=== PATIENT | male | born 1945 | race Caucasian/White ===

== ENCOUNTER → 2017-03-17 | Outpatient (CLI) | payer OTHER | LOC: BMCIMAGING 12:23 | PROVIDERS: ATTEND Family Medicine | DX: S82.831A Other fracture of upper and lower end of right fibula, initial encounter for closed fracture (principal) ==

== ENCOUNTER → 2017-04-13 | Outpatient (CLI) | payer OTHER | LOC: BMCIMAGING 11:50 | PROVIDERS: ATTEND Podiatrist Foot & Ankle Surgery | DX: S82.831D Other fracture of upper and lower end of right fibula, subsequent encounter for closed fracture with routine healing (principal) ==

== ENCOUNTER → 2017-05-06 | Outpatient (CLI) | payer OTHER ==
[~2017-05-06] MED LIST: IOPAMIDOL (ISOVUE-300) 100 ML BTL ONE
== END ==
LOC: FIMAGING 13:22
PROVIDERS: ATTEND Internal Medicine Gastroenterology
DX: K22.8 Other specified diseases of esophagus (principal); R14.0 Abdominal distension (gaseous); K22.11 Ulcer of esophagus with bleeding
CPT/HCPCS: 71260; 74177; Q9967

== ENCOUNTER → 2017-06-07 | Outpatient (CLI) | payer OTHER ==
[~2017-06-07] MED LIST changes: +GADOBUTROL 10 ML VIAL IVP ONE; -IOPAMIDOL (ISOVUE-300) 100 ML BTL ONE
== END ==
LOC: FIMAGING 19:45
PROVIDERS: ATTEND Internal Medicine Hematology & Oncology
DX: Z03.89 Encounter for observation for other suspected diseases and conditions ruled out (principal); C15.9 Malignant neoplasm of esophagus, unspecified
CPT/HCPCS: 70553; A9585

== ENCOUNTER 2017-06-15 07:54 | Day surgery (SDC) | payer OTHER ==
[2017-06-15] MEDS ORDERED: MIDAZOLAM 2 MG/2 ML VIAL IVP PRN (08:28)
[2017-06-15] MEDS ORDERED: MEPERIDINE 25 MG/ML SYR IVP PRN (08:28)
[2017-06-15] MEDS ORDERED: NALOXONE HCL 0.4 MG/ML INJ IVP PRN (08:28)
[2017-06-15] MEDS ORDERED: FLUMAZENIL 0.5 MG/5 ML MDV IVP PRN (08:28)
[2017-06-15] MEDS ORDERED: fentaNYL 100 MCG/2 ML INJ IVP PRN (08:28)
[2017-06-15] MEDS ORDERED: NS 1,000 ML IV SCH (08:30)
[2017-06-15 08:48] VITALS: TEMP 98.5
--- NOTE | 2017-06-15 08:55 | PDPROPOC ---
Sedation Plan of Care Sedation Plan of Care: vital signs stable, mental status noted, patient educated of risks, benefits, alternatives, patient can tolerate sedation ASA Classification: ASA 2 Planned drugs: fentanyl, midazolam Mallampati Score: Class 1 Mallampati Reference Image: Patient passed 3-3-2 rule?: Yes
--- NOTE | 2017-06-15 08:58 | PDGENHP ---
History & Physical Chief Complaint: NEEDS CENTRAL NUTRITION History of Present Illness: DISTAL GE JUNCTION CA. Pertinent Past, Social, Family History: NO BLEEDING DISORDERS; NO OTHER SURGERIES. HOME HEALTH CARE TO ATTEND TO FEEDS Relevant Physical Exam: IN NO DISTRESS Cardiorespiratory Assessment: RRR, CTA
[2017-06-15] MEDS ORDERED: LIDOCAINE 2% JELLY 20 ML (UROJECT) ONE (09:07)
[2017-06-15] MEDS ORDERED: LIDOCAINE 1% 300 MG/30 ML SDV ONE ×2 (09:07→09:54)
[2017-06-15] MEDS ORDERED: IOPAMIDOL (ISOVUE-300) 100 ML BTL ONE (09:07)
[2017-06-15] MEDS ORDERED: ONDANSETRON 4 MG/2 ML VIAL IVP PRN (10:08)
[2017-06-15] MEDS ORDERED: ACETAMINOPHEN 325 MG TAB PO PRN (10:08)
[2017-06-15 10:12] VITALS: PULSE 59
--- NOTE | 2017-06-15 10:13 | PDRADPN ---
Radiology Procedure Note Date of Procedure: 06/15/17 Radiologist: Mariaelena Kelly Anesthesia: IV Sedation (fentanyl and versed) Pre-op Diagnosis: GE junction CA Post-op Diagnosis: same Indication: needs enteral nutrition once chemo starts Procedure: G-tube placement Finding(s): Normal gastric anatomy. Inf/Abcess present in the surg proc area at time of surgery?: No Complications: None
[2017-06-15 11:52] VITALS: BP 107/67; RESP 12; O2SAT 94
== END 2017-06-15 12:00 | disposition home or self-care (01) ==
LOC: FIMAGING 07:54
PROVIDERS: ATTEND Internal Medicine Hematology & Oncology
DX: C15.9 Malignant neoplasm of esophagus, unspecified (principal)
CPT/HCPCS: 36569; 49440; 77001; C1751; C1769; J1644; J2250; J3010; Q9967

== ENCOUNTER → 2017-08-16 | Day surgery (SDC) | payer OTHER ==
[~2017-08-16] MED LIST changes: -GADOBUTROL 10 ML VIAL IVP ONE; +IOPAMIDOL (ISOVUE 370) 100 ML BTL IV ONE
== END | disposition home or self-care (01) ==
LOC: FIMAGING 14:15
PROVIDERS: ATTEND Radiology Diagnostic Radiology
PROC: BW11YZZ Fluoroscopy of Abdomen and Pelvis using Other Contrast (ICD-10-PCS; principal; 2017-08-16)
DX: Z43.1 Encounter for attention to gastrostomy (principal)
CPT/HCPCS: Q9967

== ENCOUNTER 2017-09-16 14:13 | Day surgery (SDC) | payer OTHER ==
[2017-09-16] MEDS ORDERED: LR 1,000 ML IV ONE (14:30)
[2017-09-16] MEDS ORDERED: INDOMETHACIN 50 MG SUPP PR PRN (15:34)
--- NOTE | 2017-09-16 15:34 | PDGENHP ---
History & Physical Chief Complaint: staging esophageal cancer History of Present Illness: 72 year old male presents for staging after neoadjuvant therapy for esophageal cancer. Pertinent Past, Social, Family History: SoHx: Former smoker. PMHx: Gout, HTN, High cholesterol Relevant Physical Exam: HEENT: anicteric sclera. CV: RRR+s1s2. lungs: CTAB No w/r/r. Abd: soft, nt, + BS Cardiorespiratory Assessment: ASA 3
--- NOTE | 2017-09-16 15:34 | PDANEPAE ---
ANE History of Present Illness here for EUS EGD ANE Past Medical History - Cardiovascular History Hx Hypertension: Yes Hx Arrhythmias: No Hx Chest Pain: No Hx Coronary Artery / Peripheral Vascular Disease: Yes Hx CHF / Valvular Disease: No Hx Palpitations: No Cardiovascular History Comment: Heart Attack 12 years, 2 stents - Pulmonary History Hx COPD: No Hx Asthma/Reactive Airway Disease: No Hx Recent Upper Respiratory Infection: No Hx Oxygen in Use at Home: No Hx Sleep Apnea: No Sleep Apnea Screening Result - Last Documented: Positive - Neurologic History Hx Cerebrovascular Accident: No Hx Seizures: No Hx Dementia: No - Endocrine History Hx Diabetes: No - Renal History Hx Renal Disorders: No - Liver History Hx Hepatic Disorders: No - Neurological & Psychiatric Hx Hx Neurological and Psychiatric Disorders: No - Cancer History Hx Cancer: Yes Cancer History Comment: Lower esophgus - Congenital Disorder History Hx Congenital Disorders: No - GI History Hx Gastrointestinal Disorders: No Gastrointestinal History Comment: esophageal cancer, acid reflux. - Other Health History Other Health History: cataract - Chronic Pain History Chronic Pain: No - Surgical History Prior Surgeries: Vasectomy ANE Review of Systems Review of Systems: - Exercise capacity Exercise capacity: >=4 METS METS (RN): 4 METS ANE Patient History - Allergies Allergies/Adverse Reactions: No Known Allergies Allergy (Verified 09/01/17 14:31) - Home Medications Home Medications: Acetamn/Diphenhydramine 500/25 [Tylenol PM (*)] 09/03/12 [Last Taken 09/01/12] Levothyroxine [Synthroid 112 mcg (*)] 09/03/12 [Last Taken 09/16/17] Metoprolol Tartrate [Lopressor 50 mg (*)] 09/03/12 [Last Taken 09/16/17] Ramipril [Altace 5mg (*)] 09/03/12 [Last Taken 09/02/12] Atorvastatin Calcium 06/14/17 [Last Taken 09/09/17] Indomethacin 06/14/17 [Last Taken 09/09/17] Allopurinol 09/01/17 [Last Taken 09/16/17] Carafate 1gm/10ml Oral Liquid (*) 09/01/17 [Last Taken Unknown] - NPO status NPO Status: no food or drink >8 hours NPO Since - Liquids (Date): 09/16/17 NPO Since - Liquids (Time): 14:46 NPO Since - Solids (Date): 09/15/17 NPO Since - Solids (Time): 18:00 - Anes Hx Anes Hx: no prior problems - Smoking Hx Smoking Status: Former smoker - Alcohol Use Alcohol Use: Rarely - Family Anes Hx Family Anes Hx: none Family Hx Anesthesia Complications: unknow ANE Labs/Vital Signs - Vital Signs Blood Pressure: 109/73 Heart Rate: 79 Respiratory Rate: 16 O2 Sat (%): 97 Height: 179.07 cm Weight: 76.657 kg ANE Physical Exam - Airway Neck exam: FROM Mallampati Score: Class 2 Mouth exam: normal dental/mouth exam - Pulmonary Pulmonary: no respiratory distress, clear to auscultation - Cardiovascular Cardiovascular: regular rate and rhythym, no murmur, rub, or gallop - ASA Status ASA Status: III ANE Anesthesia Plan Anesthesia Plan: GA with mask
[2017-09-16] MEDS ORDERED: PROPOFOL/EMULSION 500 MG/50 ML BOTTLE IV ONE ×2 (15:37→16:20)
[2017-09-16] MEDS ORDERED: NS 500 ML IV SCH (15:45)
[2017-09-16] MEDS ORDERED: NALOXONE HCL 0.4 MG/ML INJ IVP PRN (16:37)
[2017-09-16] MEDS ORDERED: LR 500 ML IV PRN (16:37)
--- NOTE | 2017-09-16 16:38 | POSTANESTH ---
Post Anesthetic Evaluation Cardiovascular Status: Normal, Stable, Similar to Pre-Op Cond Respiratory Status: Normal, Stable, Similar to Pre-op Cond. Level of Consciousness/Mental Status: Can Participate in Eval, Alert and Oriented Pain Control: Adequate, Prn Tx Ordered Nausea/Vomiting Control: Adequate, Prn Tx Ordered Complications Possibly Related to Anesthesia: None Noted
--- NOTE | 2017-09-16 16:41 | GIREPORT ---
[facility] Surgical Services - Endoscopy Department Patient Name: Martinez Mchugh Procedure Date: 09/16/2017 3:20 PM Patient Type: Outpatient Attending / ER Physician: Hans Crowe MD Procedure: Upper EUS Indications: Esophageal adenocarcinoma/Post-treatment Patient Profile: 72 year old male presents for restaging of an esophageal cancer. Providers: Hans Crowe MD Medicines: Monitored Anesthesia Care Complications: No immediate complications. Estimated blood loss: Minimal. Description of Procedure: After obtaining informed consent, the endoscope was passed under direct vision. Throughout the procedure, the patient's blood pressure, pulse, and oxygen saturations were monitored continuously. The Endosonoscope was introduced through the mouth, and advanced to the lower third of esopha werner. The Endosonoscope was introduced through the mouth, and advanced to the lower third of esophagus. The upper EUS was accomplished without diffic ulty. The esophagus was visualized endosonogrpahically. The patient tolerated the procedure well. The Endosonoscope was introduced through the mouth, and advanced to the lower third of esophagus. Findings: Endoscopic Finding : One severe (stenosis; an endoscope cannot pass) malignant-appearing, intrinsic stenosis was found 40 cms from the incisors. And was not rubi ersed due to the high grade malignancy. Endosonographic Finding : Wall thickening was visualized endosonographically in the gastroesophag eal junction with penetration to the adventitia consistent which may repres ent tumor vs artifact from treatment. One enlarged lymph node was visualized at 20 cms from the incisors. It measured 9 mm by 4 mm in maximal cross-sectional diameter. The node was round, hypoechoic and had well defined margins. Fine needle aspiration for cytology was performed. Color Doppler imaging was utilized prior to nee dle puncture to confirm a lack of significant vascular structures within th e needle path. Two passes were made with the 25 gauge needle using a transesophageal approach. A stylet was used. A hand shoe cutter was present a nd performed a preliminary cytologic examination. The cellularity of the specimen was adequate. Final cytology results are pending. Estimated Blood Loss: Estimated blood loss was minimal. Post Op Diagnosis: - Malignant-appearing esophageal stenosis. - Wall thickening was seen in the gastroesophageal junction. - One enlarged lymph node was visualized at 20cms. Fine needle aspirati on performed. Recommendation: - Discharge patient to home (with escort). - Await cytology results and await path results. - Follow up with oncology. - Thank you for allowing me to participate in the care of your patient. Attending Participation: I personally performed the entire procedure. aHns Crowe MD Hans Crowe MD 09/16/2017 4:41:21 PM This report has been signed electronicallyHans Crowe MD Number of Addenda: 0 Note Initiated On: 09/16/2017 3:20 PM [email or web address]
[2017-09-16 18:04] VITALS: BP 111/66
== END 2017-09-16 18:15 | disposition home or self-care (01) ==
LOC: FSGY 14:13
PROVIDERS: ATTEND Internal Medicine Gastroenterology
PROC: 07978ZX Drainage of Thorax Lymphatic, Via Natural or Artificial Opening Endoscopic Approach, Diagnostic (ICD-10-PCS; principal; 2017-09-16 15:30)
DX: Z08 Encounter for follow-up examination after completed treatment for malignant neoplasm (principal); K22.2 Esophageal obstruction; R59.0 Localized enlarged lymph nodes; C16.0 Malignant neoplasm of cardia; R13.10 Dysphagia, unspecified; E03.9 Hypothyroidism, unspecified; I10 Essential (primary) hypertension; M10.9 Gout, unspecified; E78.5 Hyperlipidemia, unspecified; I25.2 Old myocardial infarction; I25.10 Atherosclerotic heart disease of native coronary artery without angina pectoris; Z92.3 Personal history of irradiation; Z87.891 Personal history of nicotine dependence; Z95.5 Presence of coronary angioplasty implant and graft
CPT/HCPCS: J2704

== ENCOUNTER 2017-10-11 08:20 | Inpatient (IN) | payer OTHER ==
[~2017-10-11 08:20] MED LIST changes: -IOPAMIDOL (ISOVUE 370) 100 ML BTL IV ONE; +cefOXitin SODIUM 2 GM in STERILE WATER INJ 21 ML IV ONE
[2017-10-11] MEDS ORDERED: LR 1,000 ML IV ONE (08:46)
[2017-10-11] MEDS ORDERED: BUPIVACAINE 0.5% 30 ML SDV ONE ×2 (10:15→16:51)
[2017-10-11] MEDS ORDERED: EPINEPHrine 1 MG/ML INJ ONE ×2 (10:15→16:52)
--- NOTE | 2017-10-11 10:56 | PDHPUP ---
History & Physical Update H&P update statement: This history and physical update is based on an assessment of the patient which was completed after admission or registration (within 24 hours), but prior to the surgery/procedure. H&P update: H&P reviewed & patient examined, no change in patient's condition since H&P completed
[2017-10-11] MEDS ORDERED: MIDAZOLAM 2 MG/2 ML VIAL IVP ONE (11:13)
--- NOTE | 2017-10-11 11:13 | PDANEPAE ---
ANE History of Present Illness 72 yerar old with esophogeal ca ANE Past Medical History - Cardiovascular History Hx Hypertension: Yes Hx Arrhythmias: No Hx Chest Pain: No Hx Coronary Artery / Peripheral Vascular Disease: Yes Hx CHF / Valvular Disease: No Hx Palpitations: No Cardiovascular History Comment: AR '04, 2 stents PLACED '04, STENT X1 '05 - Pulmonary History Hx COPD: No Hx Asthma/Reactive Airway Disease: No Hx Recent Upper Respiratory Infection: No Hx Oxygen in Use at Home: No Hx Sleep Apnea: No Sleep Apnea Screening Result - Last Documented: Negative Pulmonary History Comment: USES E CIG OR NICOTINE PATCH - Neurologic History Hx Cerebrovascular Accident: No Hx Seizures: No Hx Dementia: No - Endocrine History Hx Diabetes: No Endocrine History Comment: HYPOTHYROID - Renal History Hx Renal Disorders: No - Liver History Hx Hepatic Disorders: No - Neurological & Psychiatric Hx Hx Neurological and Psychiatric Disorders: No - Cancer History Hx Cancer: Yes Cancer History Comment: Lower esophgus-TX W/CHEMO AND RAD - Congenital Disorder History Hx Congenital Disorders: No - GI History Hx Gastrointestinal Disorders: No Gastrointestinal History Comment: esophageal cancer, acid reflux. G TUBE PLACEMENT - Other Health History Other Health History: cataract-EARLY SIGNS. GOUT - Chronic Pain History Chronic Pain: No - Surgical History Prior Surgeries: CORONARY STENTS-"LAD" ANE Review of Systems Review of systems is: negative Review of Systems: - Exercise capacity METS (RN): 4 METS ANE Patient History - Allergies Allergies/Adverse Reactions: No Known Allergies Allergy (Verified 09/01/17 14:31) - Home Medications Home Medications: Allopurinol [Allopurinol 100 MG (*)] 200 mg PO DAILY 10/02/17 [Last Taken ] Calcium Carbonate [Tums 500MG (*)] 500 mg PO TID PRN 10/02/17 [Last Taken ] Colchicine [Colchicine (*)] 0.6 mg PO DAILY 10/02/17 [Last Taken 10/10/17] Docusate Sodium [Colace 100 MG (*)] 100 mg PO BID PRN 10/02/17 [Last Taken Unknown] Indomethacin [Indocin 25 mg (*)] 50 mg PO TID PRN 10/02/17 [Last Taken 09/11/17] LORazepam [Ativan (*)] 0.5 - 1 mg PO HS PRN 10/02/17 [Last Taken 10/10/17] Levothyroxine Sodium 125 mcg PO DAILY 10/02/17 [Last Taken 10/10/17] Metoprolol Tartrate [Lopressor 50 mg (*)] 50 mg PO BID 10/02/17 [Last Taken ] Polyethylene Glycol 3350 [Miralax 17 gm (*)] 17 gm PO DAILY 10/02/17 [Last Taken 10/09/17] - NPO status NPO Status: no food or drink >8 hours NPO Since - Liquids (Date): 10/10/17 NPO Since - Liquids (Time): 20:00 NPO Since - Solids (Date): 10/10/17 NPO Since - Solids (Time): 18:00 - Anes Hx Anes Hx: no prior problems - Smoking Hx Smoking Status: Former smoker - Alcohol Use Alcohol Use: None - Family Anes Hx Family Hx Anesthesia Complications: unknown ANE Labs/Vital Signs - Vital Signs Blood Pressure: 107/80 Heart Rate: 74 Respiratory Rate: 16 O2 Sat (%): 97 Height: 177.8 cm Weight: 72.575 kg ANE Physical Exam - Airway Neck exam: FROM Mallampati Score: Class 1 Mouth exam: normal dental/mouth exam - Pulmonary Pulmonary: no respiratory distress - Cardiovascular Cardiovascular: regular rate and rhythym - ASA Status ASA Status: III ANE Anesthesia Plan Anesthesia Plan: general endotracheal anesthesia, epidural Lines/Monitors: arterial line Specialized Airway: double lumen tube
[2017-10-11] MEDS ORDERED: PROPOFOL 200 MG/20 ML VIAL ONE (12:06)
[2017-10-11] MEDS ORDERED: fentaNYL 250 MCG/5 ML INJ ONE ×2 (12:06→14:39)
[2017-10-11] MEDS ORDERED: DESFLURANE 240 ML BOTTLE IH ONE (12:54)
[2017-10-11] MEDS ORDERED: BUPIVACAINE 0.25% 30 ML SDV ONE (14:21)
[2017-10-11] MEDS ORDERED: ALBUMIN 5% 250 ML BOTTLE IV ONE (14:21)
[2017-10-11] MEDS ORDERED: METHYLENE BLUE 0.5% 50 MG/10 ML AMP ONE (16:21)
--- NOTE | 2017-10-11 17:34 | POSTOPPROG ---
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 Procedure: laparotomy with R thoractomy and esophagogastrectomy Findings: tumor at GE junction, no anastomotic leaks--tested at surgery Inf/Abcess present in the surg proc area at time of surgery?: No EBL: 500cc Complications: none Drains: Other (2 28 Fr chest tubes) Specimen(s): proximal stomach and distal esophagus to pathology. esophageal margin grossly clear.
[2017-10-11] MEDS ORDERED: ONDANSETRON 4 MG/2 ML VIAL IVP PRN ×3 (17:36→18:01)
[2017-10-11] MEDS ORDERED: PROMETHAZINE HCL 25 MG/ML INJ IVP PRN (17:43)
[2017-10-11] MEDS ORDERED: HYDROmorphONE/DILAUDID 2 MG/ML INJ IVP PRN (17:43)
[2017-10-11] MEDS ORDERED: NALOXONE HCL 0.4 MG/ML INJ IVP PRN ×2 (17:43→18:01)
[2017-10-11] MEDS ORDERED: fentaNYL 100 MCG/2 ML INJ IVP PRN (17:43)
[2017-10-11] MEDS ORDERED: D5W 1/2 NS W/ 20 KCl/L 1,000 ML IV SCH (17:45)
--- NOTE | 2017-10-11 17:45 | POSTANESTH ---
Post Anesthetic Evaluation Cardiovascular Status: Normal, Stable Respiratory Status: Normal, Stable Level of Consciousness/Mental Status: Can Participate in Eval Complications Possibly Related to Anesthesia: None Noted
--- NOTE | 2017-10-11 17:50 | PDMN ---
Medical Necessity Medical necessity: [facility] IP only surgery; cpt 61523 Esophagectomy, 12905 General Surgery (Laparotomy w/esophagogastrectomy & thoracotomy)
[2017-10-11] MEDS ORDERED: NARCOTIC DRIP BAG-TOTAL ALL TYPES EP PRN (18:01)
[2017-10-11] MEDS ORDERED: diphenhydrAMINE 25 MG CAP PO PRN (18:01)
[2017-10-11] MEDS: HYDROmorph 10MCG/ML&BUP 0.0625% in 100ML NS EP SCH (18:45)
[2017-10-11] MEDS: METOCLOPRAMIDE 10 MG/2 ML VIAL IVP SCH (20:33)
[2017-10-11] MEDS: METOPROLOL TARTRATE 50 MG TAB PO SCH (20:53)
[2017-10-12] MEDS: METOCLOPRAMIDE 10 MG/2 ML VIAL IVP SCH ×4 (01:02→18:27)
[2017-10-12] MEDS: HYDROmorph 10MCG/ML&BUP 0.0625% in 100ML NS EP SCH ×2 (06:32→20:04)
[2017-10-12] MEDS: LEVOTHYROXINE 125 MCG TAB PO SCH (08:19)
[2017-10-12] MEDS: ALLOPURINOL 100 MG TAB PO SCH (08:19)
[2017-10-12] MEDS: COLCHICINE 0.6 MG CAP/TAB PO SCH (08:19)
[2017-10-12] MEDS: METOPROLOL TARTRATE 50 MG TAB PO SCH ×2 (08:21→21:45)
[2017-10-12] MEDS ORDERED: NS W/ 20 KCl/L 1,000 ML IV SCH (08:30)
--- NOTE | 2017-10-12 08:31 | SOAPPROG ---
SOAP Progress Note Assessment/Plan: Assessment/Plan: 72 Y M s/p laparotomy and thoracotomy with esophagogastrectomy for esophageal CA, Gtube removal with gastrostomy repair, jejunostomy placement. POD#1. Overall doing well. Heme: Anemia. Seems stable. 2upRBCs intraop with appropriate response. Will recheck later today. GI/FEN: Ileus/GE anastomosis. Continue NPO and NG to LWS. Trickle J tube feeds started. J tube being used for PO meds. Hyperglycemia. Will change IVF from D5W1 /2NS to NS. Neuro: Pain. Epidural is working well. : Continue lynch catheter until epidural removed. ID: Ppx ceftriaxone for potential contamination. Pulm: Repeat CXR in am. Anterior chest tube that crossed over to L chest repositioned itself--may need L chest tube at some point. Wounds: Well dressed. Cards: hemodynamically stable. BP low this am (70's) but up since awake (120's) . D/c arterial line. VTE ppx to start tomorrow if H&H ok. Anesthesia aware. Pathology pending. S: not much pain. got some sleep last night. O: alert, nad ng in place, mmm chest: ctab, no air leak cor: rrr abd: soft, no BS wounds: well dressed ext: no edema 10/12/17 08:33 Objective: Vital Signs Temp Pulse Resp BP Pulse Ox 35.6 C L 88 14 100/55 L 90 L 10/11/17 19:35 10/12/17 08:00 10/12/17 08:00 10/12/17 08:00 10/12/17 08:00 Laboratory Results 10/12/17 04:20 10/12/17 04:20 10/11/17 10/12/17 10/13/17 05:59 05:59 05:59 Intake Total 5990 Output Total 5763 Balance 4192 ICD10 Worksheet Patient Problems: Problems Problem Status Onset Esophageal cancer Acute
[2017-10-12] MEDS: DC NARCS MISC SCH (08:34)
[2017-10-12] MEDS: REGARDING ANTICOAG MISC SCH (08:34)
[2017-10-12] MEDS: cefOXitin SODIUM 1 GM in STERILE WATER INJ 10.5 ML IV SCH ×3 (09:56→22:00)
--- NOTE | 2017-10-12 13:04 | SOAPPROG ---
SOAP Progress Note Assessment/Plan: Assessment: Pt doing well after surgery. Pain reasonably controlled by epidural. Plan: Will keep epidural running at current settings. Pt may receive prn narcotics for break through pain 10/12/17 13:01 Subjective: VVS, Epidural site clean, dressing intact, nontender Objective: Vital Signs Temp Pulse Resp BP Pulse Ox 35.6 C L 91 15 110/62 92 10/11/17 19:35 10/12/17 10:00 10/12/17 10:00 10/12/17 10:00 10/12/17 10:00 Laboratory Results 10/12/17 04:20 10/12/17 04:20 10/11/17 10/12/17 10/13/17 05:59 05:59 05:59 Intake Total 5990 Output Total 1798 0 Balance 4192 0 - Time Spent With Patient Time Spent With Patient: 15 minutes - Pending Discharge Pending Discharge Within 24 Hours: No Pending Discharge Within 48 Hours: No ICD10 Worksheet Patient Problems: Problems Problem Status Onset Esophageal cancer Acute
[2017-10-12] MEDS: NS 1,000 ML IV SCH (14:46)
--- NOTE | 2017-10-12 15:17 | GCON ---
[f rep st] CONSULTATION PULMONARY/CRITICAL CARE CONSULTATION DATE OF CONSULTATION: 10/12/2017 REFERRING PHYSICIAN: Prince Silva MD REASON FOR REFERRAL: Evaluation and management of anemia and hyperglycemia. HISTORY OF PRESENT ILLNESS: The patient is a 72-year-old male who recently underwent evaluation for esophageal stenosis with difficulty swallowing. He was found to have an adenocarcinoma at the [facility]. He underwent radiation and chemotherapy and then was referred to Dr. Silva to consider gastro esophagectomy. The patient was admitted electively yesterday and underwent gastroesophagectomy. He had a laparotomy and right thoracotomy. His intraoperative course was unremarkable. He now reports that he is doing fairly well, although he still has significant pain, mostly in the right chest but also in the abdom en. This is being fairly well managed with an epidural catheter. He reports that he is fairly comfo rtable as long as he is not moving too much, but does still have significant pain with movement or co ughing. He denies feeling short of breath. PAST MEDICAL HISTORY: 1. Coronary artery disease status post myocardial infarction in 2003. 2. Hypertension. 3. Hypothyroid. 4. Hypercholesterolemia. MEDICATIONS: At time of admission include allopurinol, atorvastatin, colchicine, indomethacin, levot hyroxine, Lopressor, [place], and omeprazole. ALLERGIES: None. SOCIAL HISTORY: The patient has a 25 pack-year history of smoking and continues to smoke a few cigar ettes a day. He drinks 5-7 alcoholic beverages a week. FAMILY HISTORY: Unremarkable. REVIEW OF SYSTEMS: A 10-point review of systems adds nothing to the History of Present Illness. PHYSICAL EXAMINATION: GENERAL: The patient is awake, alert, and in no acute distress. VITAL SIGNS: Blood pressure is 146/59 with a heart rate of 99. He is afebrile. Oxygen saturations are 96% on 2 L. HEENT: Normocephalic and atraumatic. No icterus. NECK: No JVD. Trachea is midline. CHEST: Some decreased breath sounds in the right base. CARDIAC: Regular rate and rhythm without murmur. AB DOMEN: Mildly distended and tender. He has a gastrostomy tube in place. Bowel sounds are hypoactiv e. EXTREMITIES: No clubbing, cyanosis, or edema. He has a left radial arterial line. LABORATORY: Chemistry group is remarkable for a glucose of 204 and a calcium of 7.7. Hemoglobin is 9.9, down from 10.3 yesterday afternoon but up from 8.4 earlier that day. A chest x-ray shows a left pleural effusion with atelectasis. The right lung is well expanded withou t pneumothorax. He has right-sided chest tubes. The images were reviewed by me. ASSESSMENT: 1. Anemia. This has been present for at least several weeks, with hemoglobins between 8.4 and 10.3 on multiple draws. He is asymptomatic and has no signs of active bleeding. 2. Hyperglycemia. The patient's blood sugar was 204 this morning. His recent blood tests have most ly been in the normal range and he has no history of diabetes. Likely, this will resolve spontaneous ly, although it is also possible he may need a change in his tube feed formula. 3. Esophageal cancer status post gastroesophagectomy. The patient is recovering as expected, with s ignificant pain that is being managed with an epidural as well as p.r.n. pain medications. 4. Left pleural effusion. This is likely related to surgery. He has right chest tubes, but not a l eft chest tube. The effusion may persist for a while until he starts to mobilize fluid postoperative ly. 5. Prophylaxis. The patient is on Lovenox for deep venous thrombosis prophylaxis. RECOMMENDATIONS: 1. Follow hemoglobin level. 2. Repeat glucose. 3. Follow up chest x-ray. I do not feel that a thoracentesis is warranted at this point, given the patient's minimal oxygen needs and lack of dyspnea. 4. Continue enoxaparin. /[id number]/MODL
--- NOTE | 2017-10-12 15:54 | ASMTCASEMG ---
Living Arrangements What is your living Answers: With Spouse arrangement? Who do you live with? Type Of Residence What kind of residence do Answers: House you live in? Discharge Plan Comments Coordination Status Comments Notes: Patient is a 72yo male who was admitted for partial gastroesophagectomy by Dr. Silva. Patient recently finished 6 weeks of radiation and chemotherapy with Dr. Michelle. No therapies ordered currently. D/C plan TBD. CM will follow. Date Signed: 10/12/2017 03:53 PM Electronically Signed By:Radha Smith LCSW
[2017-10-12] MEDS ORDERED: BIOTENE DRY MOUTH ORAL RINSE 237 ML BTL MM PRN (16:50)
[2017-10-12] MEDS ORDERED: ORAL BALANCE GEL TUBE PO PRN ×2 (18:32→19:00)
[2017-10-13] MEDS: NS 1,000 ML IV SCH (01:42)
[2017-10-13] MEDS: METOCLOPRAMIDE 10 MG/2 ML VIAL IVP SCH ×4 (01:46→18:47)
[2017-10-13] MEDS: HYDROmorphone HCL/NS 0.5 MG/ML SYR IVP PRN ×2 (01:46→15:18)
[2017-10-13] MEDS: cefOXitin SODIUM 1 GM in STERILE WATER INJ 10.5 ML IV SCH ×3 (03:13→16:20)
[2017-10-13] MEDS: HYDROmorph 10MCG/ML&BUP 0.0625% in 100ML NS EP SCH ×2 (06:00→16:03)
[2017-10-13] MEDS: COLCHICINE 0.6 MG CAP/TAB PO SCH (09:13)
[2017-10-13] MEDS: ALLOPURINOL 100 MG TAB PO SCH (09:13)
[2017-10-13] MEDS: LEVOTHYROXINE 125 MCG TAB PO SCH (09:14)
[2017-10-13] MEDS: METOPROLOL TARTRATE 50 MG TAB PO SCH ×2 (09:14→22:32)
[2017-10-13] MEDS: DC NARCS MISC SCH (10:22)
[2017-10-13] MEDS: REGARDING ANTICOAG MISC SCH (10:23)
--- NOTE | 2017-10-13 13:13 | POSTANESTH ---
Post Anesthetic Evaluation Cardiovascular Status: Normal, Stable, Similar to Pre-Op Cond Respiratory Status: Normal, Stable, Similar to Pre-op Cond. Level of Consciousness/Mental Status: Can Participate in Eval, Alert and Oriented Pain Control: Adequate, Prn Tx Ordered Nausea/Vomiting Control: Adequate, Prn Tx Ordered Complications Possibly Related to Anesthesia: None Noted Notes: Pt seen and examined, POD#2 PCEA. Back site is c/d/i, no e/e/e, 11 cm at the skin. Able to ambulate short distances with assistance. Reports pain control is very good at rest, flairs with movement R>L. No N/V/BAUMANN, does report some itchiness. Plan: :Continue PCEA gtt as ordered. :Continue to ambulate with assistance. :Will coordinate with surgical team re disposition.
--- NOTE | 2017-10-13 13:20 | SOAPPROG ---
SOAP Progress Note Assessment/Plan: Assessment: 72 Y M s/p laparotomy and thoracotomy with esophagogastrectomy for esophageal CA , Gtube removal with gastrostomy repair, jejunostomy placement. POD#2 S: Overall doing well. C/o a little more pain today. Denies passing flatus or stool yet. Tolerating tube feedings well. O: Alert Afebrile H&H stable Neuro: pain. Epidural to be removed today. Cardiac: RRR Chest: CTA bilaterally. Chest xray stable today, per Dr. Silva. Chest tube to suction. No air leak. Over 500cc out in last 24 hours. Abdomen: soft, mildly tender. Hypoactive BS. NG tube to LWS. 100cc out in last 24 hours. Dressings cdi. Plan: D/c epidural per anesthesia. Start VTE ppx. D/c lynch catheter. Downgrade to med/surg. Await return of bowel function. Plan for small bowel follow through tomorrow. 10/13/17 13:14 Objective: Vital Signs Temp Pulse Resp BP Pulse Ox 36.9 C 115 H 25 H 86/49 L 95 10/13/17 07:28 10/13/17 07:28 10/13/17 07:28 10/13/17 07:28 10/13/17 07:28 Laboratory Results 10/13/17 09:39 10/13/17 09:39 10/12/17 10/13/17 10/14/17 05:59 05:59 05:59 Intake Total 5934 2123 Output Total 1585 1985 Balance 4192 1080 ICD10 Worksheet Patient Problems: Problems Problem Status Onset Esophageal cancer Acute
[2017-10-13] MEDS: ENOXAPARIN 40 MG/0.4 ML SYR SC SCH (13:31)
[2017-10-14] MEDS: METOCLOPRAMIDE 10 MG/2 ML VIAL IVP SCH ×4 (00:16→17:15)
[2017-10-14] MEDS: HYDROmorph 10MCG/ML&BUP 0.0625% in 100ML NS EP SCH ×3 (02:02→22:18)
[2017-10-14] MEDS: NS 1,000 ML IV SCH ×2 (02:21→22:18)
[2017-10-14] MEDS: ACETAMINOPHEN 650 MG/20.3 ML UDCUP TUBE PRN (04:26)
[2017-10-14] MEDS ORDERED: ALBUMIN 5% 500 ML IV ONE (04:30)
[2017-10-14] MEDS: ALLOPURINOL 100 MG TAB PO SCH (09:35)
[2017-10-14] MEDS: COLCHICINE 0.6 MG CAP/TAB PO SCH (09:35)
[2017-10-14] MEDS: LEVOTHYROXINE 125 MCG TAB PO SCH (09:35)
[2017-10-14] MEDS: ENOXAPARIN 40 MG/0.4 ML SYR SC SCH (09:35)
[2017-10-14] MEDS: REGARDING ANTICOAG MISC SCH (10:06)
[2017-10-14] MEDS: DC NARCS MISC SCH (10:06)
[2017-10-14] MEDS: METOPROLOL TARTRATE 50 MG TAB PO SCH ×2 (10:06→20:49)
--- NOTE | 2017-10-14 15:30 | ASMTCMCOM ---
CM Note CM Note Notes: PT is recommending patient d/c home independently at this time. They note they will continue to assess. CM available for d/c planning and needs. CM will follow. Date Signed: 10/14/2017 03:30 PM Electronically Signed By:Radha Smith LCSW
[2017-10-15] MEDS: METOCLOPRAMIDE 10 MG/2 ML VIAL IVP SCH ×4 (02:51→18:15)
[2017-10-15] MEDS: NS 1,000 ML IV SCH (06:12)
[2017-10-15 06:25] LABS: PLATELET COUNT 131 10^3/uL (150-400)
[2017-10-15] MEDS: ENOXAPARIN 40 MG/0.4 ML SYR SC SCH (08:19)
[2017-10-15] MEDS: LEVOTHYROXINE 125 MCG TAB PO SCH (08:19)
[2017-10-15] MEDS: ALLOPURINOL 100 MG TAB PO SCH (08:19)
[2017-10-15] MEDS: COLCHICINE 0.6 MG CAP/TAB PO SCH (08:19)
[2017-10-15] MEDS: METOPROLOL TARTRATE 50 MG TAB PO SCH ×2 (08:22→22:08)
[2017-10-15] MEDS: REGARDING ANTICOAG MISC SCH (09:25)
[2017-10-15] MEDS: DC NARCS MISC SCH (09:25)
--- NOTE | 2017-10-15 11:30 | POSTANESTH ---
Post Anesthetic Evaluation Cardiovascular Status: Normal, Stable, Similar to Pre-Op Cond Respiratory Status: Normal, Stable, Similar to Pre-op Cond. Level of Consciousness/Mental Status: Can Participate in Eval, Alert and Oriented Pain Control: Adequate, Prn Tx Ordered Nausea/Vomiting Control: Adequate, Prn Tx Ordered Complications Possibly Related to Anesthesia: None Noted Notes: Pt seen and examined. Back site c/d/i, no e/e/e. Able to ambulate with walker. Denies n/v. Reports some itchiness. Pain control is rated as good, though it took some time to get to sleep last night. Plan: :Pt is moving towards discharge, so will transition from epidural to IV/PO meds as tolerated. :Hold epidural infusion now. :Please pull epidural catheter 12 hours after this am's Lovenox dose, document tip intact. :Thank you for this interesting consult, please call with any questions or concerns.
--- NOTE | 2017-10-15 12:00 | SOAPPROG ---
SOAP Progress Note Assessment/Plan: Assessment: AFEBRILE/VITAL SIGNS STABLE/URINE OUTPUT GOOD/500 CC CHEST TUBE OUTPUT/MINIMAL NG OUTPUT CHEST X-RAY YESTERDAY WELL EXPANDED WOUND OKAY TOLERATING TUBE FEEDS BREATH SOUNDS EQUAL/ABDOMEN SOFT NONTENDER WITH BOWEL SOUNDS HEMATOCRIT 31 Plan: HOPEFULLY START P.O. SOON 10/15/17 11:59 10/15/17 14:32 Objective: Vital Signs Temp Pulse Resp BP Pulse Ox 37 C 96 17 99/68 L 97 10/15/17 07:30 10/15/17 07:30 10/15/17 07:30 10/15/17 07:30 10/15/17 07:30 Laboratory Results 10/15/17 08:50 10/15/17 05:45 10/14/17 10/15/17 10/16/17 05:59 05:59 05:59 Intake Total 3893 4005 Output Total 2290 2305 Balance 1603 1700 ICD10 Worksheet Patient Problems: Problems Problem Status Onset Esophageal cancer Acute
[2017-10-15] MEDS ORDERED: PROTOCOL POTASSIUM 1 DOSE MISC PRN (15:33)
[2017-10-15] MEDS: HYDROmorph 10MCG/ML&BUP 0.0625% in 100ML NS EP SCH (18:19)
[2017-10-15] MEDS ORDERED: POTASSIUM CL 10 MEQ TAB PO ONE (21:29)
[2017-10-15] MEDS: POTASSIUM Cl (KCl) 50 ML IV SCH ×2 (22:27→23:26)
[2017-10-16] MEDS: METOCLOPRAMIDE 10 MG/2 ML VIAL IVP SCH ×4 (00:58→18:04)
[2017-10-16] MEDS: HYDROmorph 10MCG/ML&BUP 0.0625% in 100ML NS EP SCH ×2 (04:12→14:05)
[2017-10-16] MEDS: POTASSIUM Cl (KCl) 50 ML IV SCH ×2 (05:33→07:37)
[2017-10-16] MEDS: COLCHICINE 0.6 MG CAP/TAB PO SCH (08:31)
[2017-10-16] MEDS: LEVOTHYROXINE 125 MCG TAB PO SCH (08:31)
[2017-10-16] MEDS: ALLOPURINOL 100 MG TAB PO SCH (08:31)
[2017-10-16] MEDS: ENOXAPARIN 40 MG/0.4 ML SYR SC SCH (08:32)
[2017-10-16] MEDS: METOPROLOL TARTRATE 50 MG TAB PO SCH (08:33)
[2017-10-16] MEDS: ALLOPURINOL 100 MG TAB TUBE SCH (08:34)
[2017-10-16] MEDS: METOPROLOL TARTRATE 50 MG TAB TUBE SCH ×2 (08:35→21:43)
[2017-10-16] MEDS: LEVOTHYROXINE 125 MCG TAB TUBE SCH (08:35)
[2017-10-16] MEDS: COLCHICINE 0.6 MG CAP/TAB TUBE SCH (08:35)
[2017-10-16] MEDS: DC NARCS MISC SCH (10:30)
--- NOTE | 2017-10-16 10:53 | SOAPPROG ---
JANESSA Progress Note Assessment/Plan: Assessment: AFEBRILE/VITAL SIGNS STABLE/URINE OUTPUT GOOD/500 CC CHEST TUBE OUTPUT/MINIMAL NG OUTPUT CHEST X-RAY YESTERDAY WELL EXPANDED WOUND OKAY TOLERATING TUBE FEEDS BREATH SOUNDS EQUAL/ABDOMEN SOFT NONTENDER WITH BOWEL SOUNDS HEMATOCRIT 31 Plan: HOPEFULLY START P.O. SOON 10/15/17 11:59 10/15/17 14:32 10/16/17 10:52 ALERT/VITAL SIGNS STABLE/TOLERATING CLEARS/MINIMAL NG OUTPUT/CHEST TUBE DRAINAGE DECREASED/PATH PENDING AFEBRILE/TOLERATING NG CLAMP WOUND OKAY/ABDOMEN SOFT WITH BOWEL SOUNDS AND POSITIVE FLATUS PLAN: DC NG IS AND CONTINUE CLEAR LIQUIDS/HOPEFULLY DC CHEST TUBES IN THE A.M. Objective: Vital Signs Temp Pulse Resp BP Pulse Ox 36.8 C 93 16 100/67 99 10/16/17 07:48 10/16/17 10:00 10/16/17 10:00 10/16/17 10:00 10/16/17 10:00 Laboratory Results 10/15/17 08:50 10/16/17 04:10 10/15/17 10/16/17 10/17/17 05:59 05:59 05:59 Intake Total 4005 4034 Output Total 2305 1920 Balance 1700 2114 ICD10 Worksheet Patient Problems: Problems Problem Status Onset Esophageal cancer Acute
[2017-10-16] MEDS: REGARDING ANTICOAG MISC SCH (11:15)
[2017-10-16] MEDS: NS 1,000 ML IV SCH (11:57)
--- NOTE | 2017-10-16 13:23 | POSTANESTH ---
Post Anesthetic Evaluation Cardiovascular Status: Normal, Stable, Similar to Pre-Op Cond Respiratory Status: Normal, Stable, Similar to Pre-op Cond. Level of Consciousness/Mental Status: Can Participate in Eval, Alert and Oriented Pain Control: Adequate, Prn Tx Ordered Nausea/Vomiting Control: Adequate, Prn Tx Ordered Complications Possibly Related to Anesthesia: None Noted Notes: Pt seen and examined POD#5, PCEA in place. Pt rates pain control as good. Epidural back site is c/d/i, no e/e/e. Able to ambulate with walker. Denies n/ v/pruritis/BAUMANN. CT in place. Plan: :Plan to maintain PCEA until CT is removed, or 7 days; whichever comes first. :Hold lovenox in the am 10/17; if CT removed then will D/C epidural. :If CT maintained, redose lovenox, hold am 10/18 dose and D/C epidural at that time. :D/W surgical team.
--- NOTE | 2017-10-16 14:29 | ASMTCMCOM ---
CM Note CM Note Notes: Long conversation with patient and re: discharge planning. Patient's NG tube was clamped today, clear liquid diet was ordered, and chest tube may come out tomorrow. Patient lives in a multi-story home, and there is no bathroom on main level. has concerns about being able to care for patient, although she is home all day. They seem amenable to SNF. I provided a Senior Blue Book and some suggestions; patient's will visit facilities tomorrow. Patient is Med-Surg status. Case Management will follow. Date Signed: 10/16/2017 02:29 PM Electronically Signed By:Kiana Murillo RN
[2017-10-16] MEDS ORDERED: diphenhydrAMINE 12.5 MG/5 ML UDCUP TUBE PRN (15:41)
[2017-10-16] MEDS ORDERED: ONDANSETRON DISINTEGRATING 4 MG TAB PO PRN (15:43)
[2017-10-16] MEDS ORDERED: POTASSIUM CL 20 MEQ/15 ML UDCUP TUBE ONE (22:00)
[2017-10-16] MEDS: ACETAMINOPHEN 650 MG/20.3 ML UDCUP TUBE PRN (22:28)
[2017-10-17] MEDS: METOCLOPRAMIDE 10 MG/2 ML VIAL IVP SCH ×5 (06:25→23:29)
[2017-10-17] MEDS ORDERED: POTASSIUM CL 20 MEQ/15 ML UDCUP TUBE ONE ×2 (07:00→21:30)
[2017-10-17] MEDS: COLCHICINE 0.6 MG CAP/TAB TUBE SCH (08:01)
[2017-10-17] MEDS: ALLOPURINOL 100 MG TAB TUBE SCH (08:01)
[2017-10-17] MEDS: LEVOTHYROXINE 125 MCG TAB TUBE SCH (08:01)
[2017-10-17] MEDS: METOPROLOL TARTRATE 50 MG TAB TUBE SCH ×2 (08:07→23:53)
[2017-10-17] MEDS: REGARDING ANTICOAG MISC SCH (08:29)
[2017-10-17] MEDS: DC NARCS MISC SCH (08:29)
--- NOTE | 2017-10-17 08:40 | POSTANESTH ---
Post Anesthetic Evaluation Cardiovascular Status: Normal, Stable Respiratory Status: Normal, Stable Level of Consciousness/Mental Status: Can Participate in Eval, Alert and Oriented Pain Control: Adequate, Prn Tx Ordered Nausea/Vomiting Control: Adequate, Prn Tx Ordered Complications Possibly Related to Anesthesia: None Noted (Pt is POD #6. PCEA in place for post op pain. Site clean, dressing intact, no erythema or swelling. Pt reports good pain control without narcotics. Chest tubes in place. Will continue epidural today while CT are in place.)
--- NOTE | 2017-10-17 12:23 | ASMTCMCOM ---
CM Note CM Note Notes: Chart reviewed. Met with patient to review dc plan of care. Per patient his Rose Marie Garcia is looking at 3 facilities today and will be here at about 2:30. One referral placed in allscripts to [facility]. Will discuss preferences with his when she arrives. CM to follow. Plan: To SNF rehab. Date Signed: 10/17/2017 12:23 PM Electronically Signed By:Hilda Lees RN
--- NOTE | 2017-10-17 12:47 | SOAPPROG ---
SOED Progress Note Assessment/Plan: Assessment: 72 Y M s/p laparotomy and thoracotomy with esophagogastrectomy for esophageal CA , Gtube removal with gastrostomy repair, jejunostomy placement. POD#2 Acute blood loss anemia: resolved Pleural effusion: right sided chest tubes x2 in place S: Overall doing well. C/o a little more pain today. Denies passing flatus or stool yet. Tolerating tube feedings well. O: Alert Afebrile H&H stable Neuro: pain. Epidural helping. Cardiac: RRR Chest: CTA bilaterally. Chest xray stable today, per Dr. Silva. Chest tube to suction. No air leak. Over 500cc out in last 24 hours. Abdomen: soft, mildly tender. Hypoactive BS. NG tube to LWS. 100cc out in last 24 hours. Dressings cdi. Plan: Downgrade to med/surg. Await return of bowel function. Plan for small bowel follow through tomorrow. 10/13/17 13:14 10/17/17 12:42 Continuing to improve. Path showed small residual CA with no positive LNs. Pain well controlled. Tolerating clear liquid diet well. Passing flatus and stool. Incision cdi. J-tube intact, tolerating tube feedings. Chest tubes in place with over 300ml out in last 24 hours. Plan for d/c epidural today, as well as lynch catheter. Continue chest tubes, ok to come off suction. Advance to soft diet. LUE swelling: U/S negative for DVT. PICC in proper place. Pt denies pain. Objective: Vital Signs Temp Pulse Resp BP Pulse Ox 36.8 C 96 16 87/65 L 98 10/17/17 10:39 10/17/17 10:39 10/17/17 10:39 10/17/17 10:39 10/17/17 10:39 Laboratory Results 10/15/17 08:50 10/17/17 06:20 10/16/17 10/17/17 10/18/17 05:59 05:59 05:59 Intake Total 7731 3735 Output Total 5001 3880 Balance 2114 129 ICD10 Worksheet Patient Problems: Problems Problem Status Onset Esophageal cancer Acute
[2017-10-17] MEDS ORDERED: ENOXAPARIN 40 MG/0.4 ML SYR SC SCH ×2 (14:00→16:00)
--- NOTE | 2017-10-17 14:36 | ASMTCMCOM ---
CM Note CM Note Notes: Met with patient's regarding choices fro rehab and to discuss concerns regarding patient's overall outlook and motivation. I have left a message with our behavioral Health RN to request a consultation. I made referrals in allscripts to [facility] and [facility]. Will also call business teacher services for emotional support. CM to follow. Date Signed: 10/17/2017 02:36 PM Electronically Signed By:Hilda Lees RN
[2017-10-17] MEDS: HYDROmorph 10MCG/ML&BUP 0.0625% in 100ML NS EP SCH (15:58)
[2017-10-18] MEDS: HYDROmorph 10MCG/ML&BUP 0.0625% in 100ML NS EP SCH ×2 (02:24→12:59)
[2017-10-18] MEDS: METOCLOPRAMIDE 10 MG/2 ML VIAL IVP SCH ×3 (05:12→18:20)
[2017-10-18] MEDS ORDERED: POTASSIUM CL 20 MEQ/15 ML UDCUP PO ONE ×2 (05:58→10:00)
[2017-10-18] MEDS ORDERED: ENOXAPARIN 40 MG/0.4 ML SYR SC SCH (09:00)
[2017-10-18] MEDS: LEVOTHYROXINE 125 MCG TAB TUBE SCH (09:12)
[2017-10-18] MEDS: DC NARCS MISC SCH (09:12)
[2017-10-18] MEDS: REGARDING ANTICOAG MISC SCH (09:12)
[2017-10-18] MEDS: METOPROLOL TARTRATE 50 MG TAB TUBE SCH ×2 (09:12→22:11)
[2017-10-18] MEDS: ALLOPURINOL 100 MG TAB TUBE SCH (09:12)
[2017-10-18] MEDS: COLCHICINE 0.6 MG CAP/TAB TUBE SCH (09:13)
--- NOTE | 2017-10-18 10:16 | ASMTCMCOM ---
CM Note CM Note Notes: Spoke w/Evan at [facility]; they are able to accept pt. He is not medically ready for dc at this time. [facility] requested that if possible at dc his sleeping med be changed to Melatonin. CM will follow. Date Signed: 10/18/2017 10:15 AM Electronically Signed By:Antoinette Delarosa RN
[2017-10-18] MEDS ORDERED: ZOLPIDEM TARTRATE 5 MG TAB PO PRN (10:33)
--- NOTE | 2017-10-18 12:51 | SOAPPROG ---
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 S/P neoadjuvant chemoradiation therapy: weekly Carboplatin + Paclitaxel completed 08/01/17. Radiation therapy completed 08/05/17. Now 1 week post - op Esophagogastrectomy. Steady post op recovery noted and possible discharge 10/19/17 or when stable. Plan: 1.) Discharge when stable. 2.) I informed Dr. Neville Damon in our group that he had surgery last week. 3.) No active Tx planned for now. 4.) Pt. should see in the next 8 weeks, post op for follow up at the [facility] office. 5.) Recontact our service as needed. 10/18/17 12:46 Subjective: Feeling stronger, no respiratory sx. and now with normal bowel function on TF. Objective: VSS, afebrile as noted here. HEENT- anicteric, no thrush Neck- supple Chest- clear anteriorly CVS- RSR, no extra HS ABD- soft, NT BS+ EXT- no edema in LE, minimal LUE edema. Labs- noted here. Vital Signs Temp Pulse Resp BP Pulse Ox 36.8 C 100 18 116/83 H 92 10/18/17 12:21 10/18/17 12:21 10/18/17 12:21 10/18/17 12:21 10/18/17 12:21 Laboratory Results 10/15/17 08:50 10/18/17 05:20 10/17/17 10/18/17 10/19/17 05:59 05:59 05:59 Intake Total 1334 2070 Output Total 2820 1999 999 Balance 129 71 -1000 ICD10 Worksheet Patient Problems: Problems Problem Status Onset Esophageal cancer Acute
--- NOTE | 2017-10-18 14:47 | SOAPPROG ---
SOAP Progress Note Assessment/Plan: Assessment/Plan: 72 Y M s/p laparotomy and thoracotomy with esophagogastrectomy for esophageal CA, Gtube removal with gastrostomy repair, jejunostomy placement. POD#7. Overall doing well. Seen by Dr. Silva earlier this morning and then by myself later today. Hopefully to SNF in next few days. Will need epidural out and transition to PO pain meds PRN. May need to watch L sided pleural effusion. Heme: Stable. Did have acute blood loss anemia, 2 u pRBCs intraoperatively. On VTE ppx. GI/FEN: Ileus/GE anastomosis. Tolerating dysphagia III (soft) diet. Decrease tube feed rate to 40cc/hr. On reglan. Neuro: Pain. Epidural has worked well. Removal per anesthesia soon. : Continue lynch catheter until epidural removed. ID: Ppx ceftriaxone for potential contamination has d/c'ed. Pulm: Removed chest tubes. Some L sided pleural effusion on wet read. No obvious ptx on wet read. Await rad's input. Wounds: C/d/i. +miguel. Remove next week. Cards: hemodynamically stable. Appreciate oncology input. S: minimal pain. ate mashed potatoes. O: alert, nad ng in place, mmm chest: ctab, no air leak. removed tubes s event. cor: rrr abd: soft, no BS wounds: cdi, no erythema. ext: no edema 10/18/17 14:47 Objective: Vital Signs Temp Pulse Resp BP Pulse Ox 36.6 C 93 20 99/71 L 96 10/18/17 14:31 10/18/17 14:31 10/18/17 14:31 10/18/17 14:31 10/18/17 14:31 Laboratory Results 10/15/17 08:50 10/18/17 05:20 10/17/17 10/18/17 10/19/17 05:59 05:59 05:59 Intake Total 6977 2070 Output Total 6341999 Balance 129 71 -1000 ICD10 Worksheet Patient Problems: Problems Problem Status Onset Esophageal cancer Acute
[2017-10-19] MEDS: METOCLOPRAMIDE 10 MG/2 ML VIAL IVP SCH ×5 (00:02→23:58)
[2017-10-19] MEDS ORDERED: POTASSIUM CL 10 MEQ TAB PO ONE (07:38)
[2017-10-19] MEDS ORDERED: POTASSIUM CL 20 MEQ/15 ML UDCUP TUBE ONE (08:00)
[2017-10-19] MEDS: HYDROmorphone HCL/NS 0.5 MG/ML SYR IVP PRN (09:36)
[2017-10-19] MEDS: ALLOPURINOL 100 MG TAB TUBE SCH (09:37)
[2017-10-19] MEDS: COLCHICINE 0.6 MG CAP/TAB TUBE SCH (09:37)
[2017-10-19] MEDS: LEVOTHYROXINE 125 MCG TAB TUBE SCH (09:37)
[2017-10-19] MEDS: DC NARCS MISC SCH (09:38)
[2017-10-19] MEDS: REGARDING ANTICOAG MISC SCH (09:39)
[2017-10-19] MEDS: METOPROLOL TARTRATE 50 MG TAB TUBE SCH ×2 (09:41→20:29)
[2017-10-19] MEDS ORDERED: oxyCODONE IR 5 MG TAB PO PRN (10:35)
[2017-10-19] MEDS ORDERED: LORazepam 0.5 MG TAB TUBE PRN (10:39)
[2017-10-19] MEDS ORDERED: oxyCODONE IR 5 MG TAB TUBE PRN (11:00)
--- NOTE | 2017-10-19 11:07 | SOAPPROG ---
SOAP Progress Note Assessment/Plan: Assessment: 72 Y M s/p laparotomy and thoracotomy with esophagogastrectomy for esophageal CA , Gtube removal with gastrostomy repair, jejunostomy placement. Acute blood loss anemia: resolved S/p chest tube removal yesterday. Chest xray this am shows stable right sided pneumothorax and left sided pleural effusion S: at bedside during visit. concerned about pt's anxiety level. Pt reports that it is "just something I need to deal with". Per , he usually takes 0.5mg ativan at home for anxiety ever since originally being diagnosed with CA. Pt also c/o of mild SOB this am. Does report passing flatus and stool. Denies nausea. Tolerating a regular diet, but not much of an appetite. Only ate one small meal yesterday. O: Alert Afebrile VSS. Sating in 90s on RA Cardiac: RRR Chest: CTA bilaterally. Abdomen: soft, mildly tender to palpation. J-tube in place. Plan: Ativan prn for anxiety. Switch to oral oxycodone for pain control. D/c lynch once epidural is out. Will continue tube feeds for now until pt increases oral intake. 10/19/17 10:58 Objective: Vital Signs Temp Pulse Resp BP Pulse Ox 36.7 C 78 16 97/71 L 97 10/19/17 08:00 10/19/17 09:41 10/19/17 08:00 10/19/17 09:41 10/19/17 08:00 Microbiology 10/14/17 04:45 Blood Culture - Final Blood 10/14/17 04:45 Blood Culture - Final Blood Laboratory Results 10/15/17 08:50 10/19/17 05:00 10/18/17 10/19/17 10/20/17 05:59 05:59 05:59 Intake Total 2070 8640 Output Total 1999 0777 303 Balance 94 -535 -315 ICD10 Worksheet Patient Problems: Problems Problem Status Onset Esophageal cancer Acute
[2017-10-19] MEDS: oxyCODONE IR 5 MG TAB PO PRN (12:07)
[2017-10-19] MEDS: ENOXAPARIN 40 MG/0.4 ML SYR SC SCH (12:07)
--- NOTE | 2017-10-19 16:32 | ASMTCMCOM ---
CM Note CM Note Notes: Discussed dc plan today w/pt's , Kaycee, and she clarified that [facility] is their first choice over [facility]. Spoke w/Nenita at [facility] and they are still able to accept. Notified Evan at [facility] that pt would be using different facility. Pt's also expressed concern about pt's anxiety and depression around the cancer and surgery; she discussed this w/Jaimie Saini as well. Both Jaimie and I have put calls out to [facility]; CM will need to follow up w/her tomorrow. Also discussed these concerns with Nenita at [facility] so they are aware and she will alert their social sciences instructor. U[facility]en [facility] was here to do teach for J-tube feeding but decided it would be better to do at SNF. Current plan: dc to [facility] when med ready Date Signed: 10/19/2017 04:32 PM Electronically Signed By:Antoinette Delarosa RN
--- NOTE | 2017-10-19 18:41 | GOP ---
[f rep st] OPERATIVE REPORT DATE OF OPERATION: 10/11/2017 SURGEON: Prince Silva MD INSTRUMENT MAKER AND REPAIRER: Leeanne Gray PA-C. ANESTHESIOLOGIST: Delroy Gaffney MD PREOPERATIVE DIAGNOSIS: Gastroesophageal adenocarcinoma. POSTOPERATIVE DIAGNOSIS: Gastroesophageal adenocarcinoma. PROCEDURE PERFORMED: 1. Leonardo David esophagogastrectomy. 2. Pyloroplasty. 3. Removal of gastrostomy tube with gastric repair. 4. Mediastinal lymph node dissection. FINDINGS: Patient was found to have residual tumor at the GE junction, but no obvious metastatic disease or obvious node involvement. ESTIMATED BLOOD LOSS: Less than 600 cc. Chest tubes were secured at the skin with 2-0 silk sutures and the skin was closed with skin miguel. All wounds were infiltrated with 0.5% Marcaine. Tolerated the procedure well, taken to the recovery room in good condition. There were no complications. DESCRIPTION OF PROCEDURE: The patient was taken to the operating room where he received a satisfactory general endotracheal anesthesia by Dr. Gaffney. He was placed in the supine position, prepped and draped in the usual sterile fashion. An upper abdominal midline incision was made and carried through the linea alba. The abdomen was carefully entered. The stomach was freed up from the anterior abdominal wall. The gastrostomy tube was removed. The gastrostomy site was fully mobilized, was then debrided and closed using an inner layer of running 3-0 Vicryl suture, and an outer layer of imbricating 3-0 silk sutures. This was all done near the greater curvature of the stomach where the G-tube had been placed. That allowed better visualization into the abdomen and the abdomen was retracted with the Omni retractor. The left lateral segment of the liver was mobilized so that it could be better retracted. The esophageal hiatus was examined. It was freed up circumferentially, and the tumor appeared to be resectable. The liver was evaluated with no evidence of metastatic disease. The gastrohepatic ligament was divided with the Harmonic scalpel. The short gastrics in the gastrocolic omentum was divided with the Harmonic scalpel as well, with care to avoid injury to the gastroepiploic arteries all along the greater curvature. The Claudia maneuver was done allowing better mobility of the entire stomach and it was freed up from adhesions in the retroperitoneum to the pancreas. A portion of the posterior diaphragmatic clyde was resected along with the stomach since was somewhat adherent in that area and it could not be determined if there was tumor invasion or not. The stomach was fully mobilized and the esophagus was then mobilized, transhiatally up into the chest or as high as we could reach. A pyloroplasty was then done with a longitudinal incision over the pylorus, and then a transverse closure in 2 layers using 3-0 Vicryl for the inner layer and an outer layer of interrupted 2- 0 silk Lembert sutures. of the stomach would readily move up into the chest after the dissection was completed. The left the gastric artery was doubly ligated and divided. Multiple nodes were dissected free in the celiac area and contained with the stomach. Wound was irrigated. Hemostasis was assured. The proximal jejunum was isolated. A 14-Upper Sorbian feeding catheter was brought in through a separate stab incision. It was then inserted into the proximal small bowel via a small enterotomy in a 2-0 silk pursestring suture. Catheter appeared to flush quite well. The proximal portion of the catheter was covered with a Witzel-type closure with interrupted 3-0 silks, and it was secured up to the anterior abdominal wall near the exit site and appeared to flush quite well. The abdomen was then closed using a running #1 PDS suture for the linea alba, reinforced periodically with #1 Vicryl interrupted sutures and the skin was closed with skin miguel. The J-tube was secured to the exit site with 3-0 Prolene sutures. The wounds were dressed. The patient was then turned up in the left lateral decubitus position, and a posterolateral thoracotomy was then done using muscle sparing technique and the 5th intercostal space was entered. The mediastinum was opened and dissected free all the way up to the azygos vein. The esophagus was encircled with a [place] drain and elevated up from its bed in the mediastinum. The stomach was pulled up through the open hiatus and easily reached up into the upper reaches of the chest. Lymph node tissue in the mediastinum was dissected free, along with the esophagus, cleaning it out from one pleural surfaces to the other, all the way up to the hilum. It appeared that the stomach was viable and was reached adequately up to the level of the azygos vein. Stay sutures were placed in the esophageal wall and the proximal esophagus was divided. The stomach was further pulled up. In the CRISTA, the portion of the fundus, the GE junction and most of the lesser curvature wall of the stomach was divided with a CRISTA stapler. A specimen was removed and sent to pathology. It should be noted that the short gastrics were ligated with 2-0 silk suture ligatures. The specimen was then removed and the staple line was reinforced and imbricated with a running 3-0 Prolene suture. The remaining portion of the stomach appeared to be quite viable, and the pyloroplasty was almost at the level of the hiatus. An end-to-end anastomosis was then made to the back wall of the stomach and the esophagus, after pathology returned clear margins. A two-layer anastomosis was done with interrupted 3-0 silks for the posterior and anterior layers in the inner layers of interrupted 3-0 Vicryl mattress sutures. This created a good 2 fingerbreadth anastomosis. NG tube was passed through this anastomosis and the gastric remnant. The suture line was completed anteriorly. The remaining anterior portion of the stomach was then wrapped around the esophagus as a Pako type fundoplication with interrupted silk sutures, securing it to the pleura of the chest wall and the mediastinum. The stomach was distended with methylene blue and there was no evidence of any leakage and that was all suctioned clear. The wound was irrigated. Hemostasis was assured. Two 28-Upper Sorbian chest tubes were brought out through separate stab incisions and secured to the skin with 2-0 silk suture. The chest was then closed with #1 Vicryl pericostal sutures placed through drill bits into the lower rib. Musculature was closed with a running 0 Vicryl suture, subcu with a running 2-0 Vicryl suture and the skin with skin miguel. He tolerated the procedure well. There were no complications. FINAL PROCEDURE: 1. Leonardo David esophagogastrectomy with laparotomy and right thoracotomy. 2. Pyloroplasty. 3. Feeding jejunostomy. 4. Closure of gastrostomy wound. /[id number]/MODL MTDD
[2017-10-19] MEDS ORDERED: LORazepam 0.5 MG TAB PO PRN (20:00)
[2017-10-19] MEDS: LORazepam 0.5 MG TAB PO PRN (20:29)
[2017-10-20] MEDS ORDERED: POTASSIUM CL 20 MEQ/15 ML UDCUP TUBE ONE (02:00)
[2017-10-20] MEDS: METOCLOPRAMIDE 10 MG/2 ML VIAL IVP SCH ×3 (04:48→17:23)
[2017-10-20] MEDS: ALLOPURINOL 100 MG TAB TUBE SCH (09:50)
[2017-10-20] MEDS: LEVOTHYROXINE 125 MCG TAB TUBE SCH (09:50)
[2017-10-20] MEDS: COLCHICINE 0.6 MG CAP/TAB TUBE SCH (09:51)
[2017-10-20] MEDS: ENOXAPARIN 40 MG/0.4 ML SYR SC SCH (09:52)
[2017-10-20] MEDS: METOPROLOL TARTRATE 50 MG TAB TUBE SCH ×2 (09:52→21:55)
--- NOTE | 2017-10-20 09:53 | SOAPPROG ---
SOAP Progress Note Assessment/Plan: Assessment: 72 Y M s/p laparotomy and thoracotomy with esophagogastrectomy for esophageal CA , Gtube removal with gastrostomy repair, jejunostomy placement. Acute blood loss anemia: resolved S/p chest tube removal yesterday. Chest xray this am shows stable right sided pneumothorax and left sided pleural effusion S: at bedside during visit. concerned about pt's anxiety level. Pt reports that it is "just something I need to deal with". Per , he usually takes 0.5mg ativan at home for anxiety ever since originally being diagnosed with CA. Pt also c/o of mild SOB this am. Does report passing flatus and stool. Denies nausea. Tolerating a regular diet, but not much of an appetite. Only ate one small meal yesterday. O: Alert Afebrile VSS. Sating in 90s on RA Cardiac: RRR Chest: CTA bilaterally. Abdomen: soft, mildly tender to palpation. J-tube in place. Plan: Ativan prn for anxiety. Switch to oral oxycodone for pain control. D/c lynch once epidural is out. Will continue tube feeds for now until pt increases oral intake. 10/19/17 10:58 10/20/17 09:51 Pt seen and evaluated with Dr. Silva today. Decrease tube feeding rate to 25ml /hr. Likely d/c it tomorrow. Tolerating a regular diet and passing flatus and BMs. Pain well controlled. Breath sounds diminished at bases, otherwise clear. Repeat chest xray today to reevaluate right pneumothorax and left pleural effusion. Objective: Vital Signs Temp Pulse Resp BP Pulse Ox 36.8 C 61 16 138/82 H 94 10/20/17 07:41 10/20/17 07:41 10/20/17 07:41 10/20/17 07:41 10/20/17 07:41 Microbiology 10/14/17 04:45 Blood Culture - Final Blood 10/14/17 04:45 Blood Culture - Final Blood Laboratory Results 10/15/17 08:50 10/20/17 05:40 10/19/17 10/20/17 10/21/17 05:59 05:59 05:59 Intake Total 1347 1550 600 Output Total 1472 1060 Balance -125 490 600 ICD10 Worksheet Patient Problems: Problems Problem Status Onset Esophageal cancer Acute
[2017-10-20] MEDS: oxyCODONE IR 5 MG TAB PO PRN ×3 (10:15→21:56)
--- NOTE | 2017-10-20 16:10 | ASMTCMCOM ---
CM Note CM Note Notes: Met with patient and his . He is expressing frustration over his situation, [facility] RN in to see, she recommends low dose of metazapine 15 mg po qhs. Call to surgical PA Radha Beasley. They are in agreement with need for hospitalist consult to order medication. CM to follow. Plan: to [facility] when medically cleared. Date Signed: 10/20/2017 04:09 PM Electronically Signed By:Hilda Lees RN
[2017-10-20] MEDS: LORazepam 0.5 MG TAB PO PRN (21:56)
[2017-10-21] MEDS: METOCLOPRAMIDE 10 MG/2 ML VIAL IVP SCH ×5 (00:30→23:12)
[2017-10-21] MEDS: oxyCODONE IR 5 MG TAB PO PRN (05:38)
--- NOTE | 2017-10-21 09:04 | SOAPPROG ---
SOAP Progress Note Assessment/Plan: Assessment: 72 Y M s/p laparotomy and thoracotomy with esophagogastrectomy for esophageal CA , Gtube removal with gastrostomy repair, jejunostomy placement. Acute blood loss anemia: resolved S/p chest tube removal yesterday. Chest xray this am shows stable right sided pneumothorax and left sided pleural effusion S: at bedside during visit. concerned about pt's anxiety level. Pt reports that it is "just something I need to deal with". Per , he usually takes 0.5mg ativan at home for anxiety ever since originally being diagnosed with CA. Pt also c/o of mild SOB this am. Does report passing flatus and stool. Denies nausea. Tolerating a regular diet, but not much of an appetite. Only ate one small meal yesterday. O: Alert Afebrile VSS. Sating in 90s on RA Cardiac: RRR Chest: CTA bilaterally. Abdomen: soft, mildly tender to palpation. J-tube in place. Plan: Ativan prn for anxiety. Switch to oral oxycodone for pain control. D/c lynch once epidural is out. Will continue tube feeds for now until pt increases oral intake. 10/19/17 10:58 10/20/17 09:51 Pt seen and evaluated with Dr. Silva today. Decrease tube feeding rate to 25ml /hr. Likely d/c it tomorrow. Tolerating a regular diet and passing flatus and BMs. Pain well controlled. Breath sounds diminished at bases, otherwise clear. Repeat chest xray today to reevaluate right pneumothorax and left pleural effusion. 10/21/17 08:59 Had long conversation with pt and . Pt does not have much of an appetite. Will d/c his tube feedings to see if it helps stimulate appetite. He also feels anxious and cooped up in hospital room. Ativan at HS is helping. D/c' ing tube feedings will help him be more mobile, and hopefully help with anxiety as well. He feels that he will be ready to go to [facility] on Tuesday, but would like "a couple days" to transition. Would like to shower today, get up and walking more, and have OT help him with ADLs, such as getting dressed. Has not had BM in 2 days and feels somewhat uncomfortable. Will order Miralax. Abdomen is soft and nontender, normoactive bowel sounds. Objective: Vital Signs Temp Pulse Resp BP Pulse Ox 36.2 C 82 16 124/91 H 94 10/21/17 08:00 10/21/17 08:00 10/21/17 08:00 10/21/17 08:00 10/21/17 08:00 Laboratory Results 10/15/17 08:50 10/21/17 05:30 10/20/17 10/21/17 10/22/17 05:59 05:59 05:59 Intake Total 1550 2043 Output Total 1060 800 Balance 490 1243 ICD10 Worksheet Patient Problems: Problems Problem Status Onset Esophageal cancer Acute
[2017-10-21] MEDS: COLCHICINE 0.6 MG CAP/TAB TUBE SCH (09:11)
[2017-10-21] MEDS: LEVOTHYROXINE 125 MCG TAB TUBE SCH (09:11)
[2017-10-21] MEDS: METOPROLOL TARTRATE 50 MG TAB TUBE SCH (09:12)
[2017-10-21] MEDS: ALLOPURINOL 100 MG TAB TUBE SCH (09:12)
[2017-10-21] MEDS: ENOXAPARIN 40 MG/0.4 ML SYR SC SCH (09:13)
[2017-10-21] MEDS: POLYETHYLENE GLYCOL 3350 17 GM PKT PO SCH (10:37)
[2017-10-21 10:59] LABS: PLATELET COUNT 458 10^3/uL (150-400)
--- NOTE | 2017-10-21 15:09 | ASMTCMCOM ---
CM Note CM Note Notes: Chart reviewed. Updates to Reena at [facility]. Patient off tube feedings. Affect better today. Plan to [facility] on Tuesday if medically stable for discharge. CM to follow. Plan: To [facility] rehab Date Signed: 10/21/2017 03:08 PM Electronically Signed By:Hilda Lees RN
[2017-10-21] MEDS ORDERED: diphenhydrAMINE 12.5 MG/5 ML UDCUP PO PRN (19:00)
[2017-10-21] MEDS ORDERED: ACETAMINOPHEN 650 MG/20.3 ML UDCUP PO PRN (19:00)
[2017-10-21] MEDS: LORazepam 0.5 MG TAB PO PRN (21:15)
[2017-10-21] MEDS: METOPROLOL TARTRATE 50 MG TAB PO SCH (21:15)
[2017-10-22] MEDS: oxyCODONE IR 5 MG TAB PO PRN (02:04)
[2017-10-22] MEDS: METOCLOPRAMIDE 10 MG/2 ML VIAL IVP SCH ×3 (04:59→18:17)
[2017-10-22] MEDS: ALLOPURINOL 100 MG TAB PO SCH (08:03)
[2017-10-22] MEDS: LEVOTHYROXINE 125 MCG TAB PO SCH (08:03)
[2017-10-22] MEDS: METOPROLOL TARTRATE 50 MG TAB PO SCH ×2 (08:04→21:12)
[2017-10-22] MEDS: COLCHICINE 0.6 MG CAP/TAB PO SCH (08:04)
[2017-10-22] MEDS: ENOXAPARIN 40 MG/0.4 ML SYR SC SCH (08:04)
[2017-10-22] MEDS: POLYETHYLENE GLYCOL 3350 17 GM PKT PO SCH (08:06)
--- NOTE | 2017-10-22 10:23 | SOAPPROG ---
SOAP Progress Note Assessment/Plan: Assessment/Plan: 72 Y M s/p laparotomy and thoracotomy with esophagogastrectomy for esophageal CA, Gtube removal with gastrostomy repair, jejunostomy placement. Overall doing well. Pleural effusions/PTX. Stable, slight improvement. Mild SOB complaints could also be from us opening the hiatus of his diaphragm. Explained this to pt. Not concerned for PE or other. Tube feeds off. Still eating very little. Regular diet. Keep J tube at least until seen in office as outpatient. Pain controlled. Remove some miguel today. Plan: d/c to SNF tomorrow. family has [facility] picked out. discussed limitations/expectations/follow up plan. S: mild SOB--feels it on his left side. pain controlled. ate half a muffin and some applesauce today. per rn, also half an omelet. O: alert, nad mild dullness L, other arriaga full BS cor: rrr abd: soft, no BS wounds: cdi, no erythema. ext: no edema 10/22/17 10:19 Objective: Vital Signs Temp Pulse Resp BP Pulse Ox 36.8 C 79 16 100/78 92 10/22/17 08:00 10/22/17 08:04 10/22/17 08:00 10/22/17 08:04 10/22/17 08:00 Laboratory Results 10/21/17 10:50 10/21/17 10:50 10/21/17 10/22/17 10/23/17 05:59 05:59 05:59 Intake Total 0557 825 Output Total 800 Balance 8029 825 ICD10 Worksheet Patient Problems: Problems Problem Status Onset Esophageal cancer Acute
--- NOTE | 2017-10-22 10:29 | PDIAF ---
- Diagnosis Diagnosis: s/p esophagogastrectomy, esophageal cancer Code Status: Full Code - Medication Management Discharge Medications: Medications to Continue on Transfer Allopurinol [Allopurinol 100 MG (*)] 200 mg PO DAILY 10/02/17 [Last Taken ] Calcium Carbonate [Tums 500MG (*)] 500 mg PO TID PRN 10/02/17 [Last Taken ] Colchicine [Colchicine (*)] 0.6 mg PO DAILY 10/02/17 [Last Taken 10/10/17] Docusate Sodium [Colace 100 MG (*)] 100 mg PO BID PRN 10/02/17 [Last Taken Unknown] Indomethacin [Indocin 25 mg (*)] 50 mg PO TID PRN 10/02/17 [Last Taken 09/11/17] LORazepam [Ativan (*)] 0.5 - 1 mg PO HS PRN 10/02/17 [Last Taken 10/10/17] Levothyroxine Sodium 125 mcg PO DAILY 10/02/17 [Last Taken 10/10/17] Metoprolol Tartrate [Lopressor 50 mg (*)] 50 mg PO BID 10/02/17 [Last Taken ] Polyethylene Glycol 3350 [Miralax 17 gm (*)] 17 gm PO DAILY 10/02/17 [Last Taken 10/09/17] Ondansetron Odt [Zofran Odt 4 mg (*)] 4 mg PO Q4 PRN tab 10/22/17 [Last Taken Unknown] oxyCODONE IR [Oxycodone Ir (*)] 5 - 10 mg PO Q4HRS PRN #30 tab 10/22/17 [Last Taken Unknown] Discharge Medications: Refer to the Discharge Home Medication list for PRN reason. PICC Care - Routine: N/A - Orders Services needed: Registered Nurse, Physical Therapy, Occupational Therapy Diet Recommendation: no restrictions on diet Diet Texture: Regular Texture Diet Tube feeding: Has J tube, but not in use. Tolerating PO. Antonio: Not applicable Wound Care Instructions: No lifting over 15 lbs. Ok to shower. Avoid submerging under water like in a bath or pool. Replace dressing daily over chest tube sites until dry and healed. Will remove miguel in office visit. Sutures/[place] Site: No lifting over 15 lbs. Ok to shower. Avoid submerging under water like in a bath or pool. Replace dressing daily over chest tube sites until dry and healed. Will remove miguel in office visit. Activity/Weight Bearing Restrictions: No lifting over 15 lbs. Ok to shower. Avoid submerging under water like in a bath or pool. Replace dressing daily over chest tube sites until dry and healed. Will remove miguel in office visit. Additional Instructions: No lifting over 15 lbs. Ok to shower. Avoid submerging under water like in a bath or pool. Replace dressing daily over chest tube sites until dry and healed. - Follow Up Care Current Providers and Referrals: Prince Silva MD [Medical Doctor] - follow up in 1 week Cuauhtemoc Arias MD [Primary Care Provider] -
[2017-10-22] MEDS ORDERED: LORazepam 0.5 MG TAB PO SCH (12:00)
[2017-10-22] MEDS: LORazepam 0.5 MG TAB PO PRN ×2 (14:23→20:51)
[2017-10-23] MEDS: oxyCODONE IR 5 MG TAB PO PRN (00:11)
[2017-10-23] MEDS: METOCLOPRAMIDE 10 MG/2 ML VIAL IVP SCH ×2 (00:12→05:01)
[2017-10-23] MEDS: LORazepam 0.5 MG TAB PO PRN (02:21)
[2017-10-23 07:59] VITALS: BP 120/77
[2017-10-23] MEDS: METOPROLOL TARTRATE 50 MG TAB PO SCH (09:21)
[2017-10-23] MEDS: LEVOTHYROXINE 125 MCG TAB PO SCH (09:21)
[2017-10-23] MEDS: ALLOPURINOL 100 MG TAB PO SCH (09:21)
[2017-10-23] MEDS: COLCHICINE 0.6 MG CAP/TAB PO SCH (09:22)
[2017-10-23] MEDS: ENOXAPARIN 40 MG/0.4 ML SYR SC SCH (09:22)
[2017-10-23] MEDS: POLYETHYLENE GLYCOL 3350 17 GM PKT PO SCH (09:25)
--- NOTE | 2017-10-23 09:58 | SOAPPROG ---
EDDIEAP Progress Note Assessment/Plan: Assessment: Assessment/Plan: 72 Y M s/p laparotomy and thoracotomy with esophagogastrectomy for esophageal CA, Gtube removal with gastrostomy repair, jejunostomy placement. Still with anxiety and difficulty sleeping 1/2 miguel removed yesterday Pleural effusions/PTX. Stable, slight improvement. Tube feeds off. Still eating very little. Regular diet. Keep J tube at least until seen in office as outpatient. Pain controlled. Reviewed path with family Plan: d/c to [facility]. f S: Feeling better than yesterday O: alert, nad, in street clothes sitting on couch Good breath sounds Incision cdi Dressing inferior cor: rrr Plan: 10/23/17 09:56 Objective: Vital Signs Temp Pulse Resp BP Pulse Ox 36.5 C 86 16 120/77 95 10/23/17 07:56 10/23/17 09:21 10/23/17 07:56 10/23/17 09:21 10/23/17 07:56 Laboratory Results 10/21/17 10:50 10/21/17 10:50 10/22/17 10/23/17 10/24/17 05:59 05:59 05:59 Intake Total 825 1550 Balance 825 1550 ICD10 Worksheet Patient Problems: Problems Problem Status Onset Esophageal cancer Acute
--- NOTE | 2017-10-23 19:19 | ASDISCHSUM ---
Discharge Information Plan Status:SNF Medically Cleared to Leave:10/23/2017 Discharge Date:10/23/2017 01:04 PM CM D/C Disposition:Shelter Facility ADT D/C Disposition:Shelter Facility Projected Discharge Date:10/23/2017 11:00 AM Transportation at D/C:Wheelchair Van Discharge Delay Reason: Follow-Up Date:10/23/2017 11:00 AM Discharge Slot:2 - 12:01 pm - 18:00 pm Final Diagnosis:s/p laparotomy, thoracotomy w/ esophagogastrectomy for esophageal ca, Gtube, jejunos terri placement Placement Information Referral Type:*Half-Way/SNF Referral ID:[id number] Provider Name:[facility] Address 1:[address] Address 2: City:[place] Selection Factors:Patient/Family Choice State:[place] Patient Contact Information Contact Name:LISET Relationship: Address:[address] City:[place] Alternate Phone: State/Zip Code:[place] [address] Email: Financial Information Financial Class:Medicare Primary Plan Desc:MEDICARE INPATIENT Primary Plan Number:[id number] Secondary Plan Desc:[facility] Secondary Plan Number:[id number] Assessment Information [facility] Initial CM Assessment Living Arrangements What is your living Answers: With Spouse arrangement? Who do you live with? Type Of Residence What kind of residence do Answers: House you live in? Discharge Plan Comments Coordination Status Comments Notes: Patient is a 72yo male who was admitted for partial gastroesophagectomy by Dr. Silva. Patient recently finished 6 weeks of radiation and chemotherapy with Dr. Michelle. No therapies ordered currently. D/C plan TBD. CM will follow. Date Signed: 10/12/2017 03:53 PM Electronically Signed By:Radha Smith LCSW [facility] CM Progress Note CM Note CM Note Notes: PT is recommending patient d/c home independently at this time. They note they will continue to assess. CM available for d/c planning and needs. CM will follow. Date Signed: 10/14/2017 03:30 PM Electronically Signed By:Radha Smith LCSW [facility] CM Progress Note CM Note CM Note Notes: Long conversation with patient and re: discharge planning. Patient's NG tube was clamped today, clear liquid diet was ordered, and chest tube may come out tomorrow. Patient lives in a multi-story home, and there is no bathroom on main level. has concerns about being able to care for patient, although she is home all day. They seem amenable to SNF. I provided a Senior Blue Book and some suggestions; patient's will visit facilities tomorrow. Patient is Med-Surg status. Case Management will follow. Date Signed: 10/16/2017 02:29 PM Electronically Signed By:Kiana Murillo RN [facility] CM Progress Note CM Note CM Note Notes: Chart reviewed. Met with patient to review dc plan of care. Per patient his Rose Marie Garcia is looking at 3 facilities today and will be here at about 2:30. One referral placed in allscripts to [facility]. Will discuss preferences with his when she arrives. CM to follow. Plan: To SNF rehab. Date Signed: 10/17/2017 12:23 PM Electronically Signed By:Hilda Lees RN [facility] CM Progress Note CM Note CM Note Notes: Met with patient's regarding choices fro rehab and to discuss concerns regarding patient's overall outlook and motivation. I have left a message with our behavioral Health RN to request a consultation. I made referrals in allscripts to [facility] and [facility]. Will also call ambulance dispatcher services for emotional support. CM to follow. Date Signed: 10/17/2017 02:36 PM Electronically Signed By:Hilda Lees RN [facility] Progress Note CM Note CM Note Notes: Spoke w/Evan at [facility]; they are able to accept pt. He is not medically ready for dc at this time. Brenden Farrell requested that if possible at dc his sleeping med be changed to Melatonin. CM will follow. Date Signed: 10/18/2017 10:15 AM Electronically Signed By:Antoinette Delarosa RN [facility] CM Progress Note CM Note CM Note Notes: Discussed dc plan today w/pt's , Kaycee, and she clarified that [facility] is their first choice over [facility]. Spoke w/Nenita at [facility] and they are still able to accept. Notified Evan at [facility] that pt would be using different facility. Pt's also expressed concern about pt's anxiety and depression around the cancer and surgery; she discussed this w/Jaimie Saini as well. Both Jaimie and I have put calls out to [facility]; CM will need to follow up w/her tomorrow. Also discussed these concerns with Nenita at [facility] so they are aware and she will alert their social insurance analyst. Uyen from [facility] was here to do teach for J-tube feeding but decided it would be better to do at [facility]. Current plan: dc to [facility] when med ready Date Signed: 10/19/2017 04:32 PM Electronically Signed By:Antoinette Delarosa RN [facility] CM Progress Note CM Note CM Note Notes: Met with patient and his . He is expressing frustration over his situation, [facility] RN in to see, she recommends low dose of metazapine 15 mg po qhs. Call to surgical PA Radha Beasley. They are in agreement with need for hospitalist consult to order medication. CM to follow. Plan: to [facility] when medically cleared. Date Signed: 10/20/2017 04:09 PM Electronically Signed By:Hilda Lees RN [facility] CM Progress Note CM Note CM Note Notes: Chart reviewed. Updates to [facility] at [facility]. Patient off tube feedings. Affect better today. Plan to [facility] on Tuesday if medically stable for discharge. CM to follow. Plan: To [facility] rehab Date Signed: 10/21/2017 03:08 PM Electronically Signed By:Hilda Lees RN Case Management Discharge Plan Note Case Management Discharge Discharge Order Complete? Answers: Yes Patient to Obtain Answers: Other Notes: via [facility] Medications Transportation Arranged Answers: Other Notes: [employer] [facility] arranged and to be paid for by [facility] Transport will Pick (Date 10/23/2017 12:30 PM & Time) EMTALA Complete Answers: No Notes: N/A Case Management Transport Answers: Yes Form Complete Faxed Final Orders Answers: Yes Notes: Sent via [facility], confirmed receipt with Vane at [facility] Agency/Facility Transfer Answers: Yes Notes: Sent via Report Printed & Faxed to [facility], confirmed Receiving Agency receipt with Vane at [facility] Family Notified Answers: Yes Notes: and son at bedside Discharge Comments Notes: Reviewed chart, spoke with SARAH Chaney regarding discharge plan of care, pt's progress. Per Ritu pt to discharge to SNF today. Call placed to Vane at [facility], per [facility] bed available, able to accept. [facility] to arrange and pay for wheelchair transport. Transport to arrive at 12:30; facesheet printed for wagon driver. Update provided to pt and pt's family. Pt and family with several questions regarding transfer - questions answered. IM signed, placed in chart; copy provided to pt. Pt to follow up as directed. CM available for any further issues or concerns. [facility] Date Signed: 10/23/2017 07:18 PM Electronically Signed By:Jeannie Naylor RN Intervention Information Intervention Type:*IM-Signed Date of Service:10/21/2017 11:47 AM Patient Type:Inpatient Staff Member:Alie Dinero Hours: Discipline: Severity: Comment: Intervention Type:*IM-Signed Date of Service:10/23/2017 07:13 PM Patient Type:Inpatient Staff Member:SARAH Naylor Taylor Hours: Discipline: Severity: Comment:
== END 2017-10-23 13:04 | DRG 327 ==
LOC: F3N 08:20 → F2N 18:01 → F1N 10-16 15:44
PROVIDERS: ADMIT Surgery; ATTEND Surgery
PROC: 30233N1 Transfusion of Nonautologous Red Blood Cells into Peripheral Vein, Percutaneous Approach (ICD-10-PCS; 2017-10-11)
PROC: 0D1 Gastrointestinal System, Bypass (ICD-10-PCS; principal; 2017-10-11 11:30)
PROC: 0DB40ZZ Excision of Esophagogastric Junction, Open Approach (ICD-10-PCS; principal; 2017-10-11 11:30)
PROC: 0DHA0UZ Insertion of Feeding Device into Jejunum, Open Approach (ICD-10-PCS; principal; 2017-10-11 11:30)
PROC: 0DQ70ZZ Repair Stomach, Pylorus, Open Approach (ICD-10-PCS; principal; 2017-10-11 11:30)
PROC: 07B70ZX Excision of Thorax Lymphatic, Open Approach, Diagnostic (ICD-10-PCS; principal; 2017-10-11 11:30)
DX: C16.0 Malignant neoplasm of cardia (principal); D62 Acute posthemorrhagic anemia; J90 Pleural effusion, not elsewhere classified; Z93.1 Gastrostomy status; R13.10 Dysphagia, unspecified; I10 Essential (primary) hypertension; E03.9 Hypothyroidism, unspecified; E78.00 Pure hypercholesterolemia, unspecified; I25.10 Atherosclerotic heart disease of native coronary artery without angina pectoris; I25.2 Old myocardial infarction; R73.9 Hyperglycemia, unspecified; Z87.891 Personal history of nicotine dependence; Z95.5 Presence of coronary angioplasty implant and graft
CPT/HCPCS: 97112-GP; 97116-GP; 97162-GP; 97165-GO; 97530-GO; 97530-GP; 97535-GO; G8978-GP-CK; G8979-GP-CJ; G8987-GO-CJ; G8988-GO-CI; J0171; J0694; J1170; J1200; J1650; J2250; J2704; J2765; J3010; J3480; P9016; P9041; Q9968

== ENCOUNTER → 2017-10-26 | Outpatient (CLI) | payer OTHER | LOC: FIMAGING 16:14 | PROVIDERS: ATTEND Surgery | DX: Z09 Encounter for follow-up examination after completed treatment for conditions other than malignant neoplasm (principal); J93.9 Pneumothorax, unspecified; J90 Pleural effusion, not elsewhere classified; S22.41XD Multiple fractures of ribs, right side, subsequent encounter for fracture with routine healing; Z98.890 Other specified postprocedural states ==

== ENCOUNTER → 2018-01-16 | Outpatient (CLI) | payer OTHER | LOC: FIMAGING 08:27 | PROVIDERS: ATTEND Internal Medicine Hematology & Oncology | DX: R63.4 Abnormal weight loss (principal); R68.81 Early satiety; K21.9 Gastro-esophageal reflux disease without esophagitis; Z85.01 Personal history of malignant neoplasm of esophagus; Z90.49 Acquired absence of other specified parts of digestive tract; Z90.3 Acquired absence of stomach [part of] ==

== ENCOUNTER → 2018-06-08 | Outpatient (CLI) | payer OTHER | LOC: BHFA 15:30 | PROVIDERS: ATTEND Internal Medicine Cardiovascular Disease | DX: I65.21 Occlusion and stenosis of right carotid artery (principal) ==

== ENCOUNTER → 2018-06-21 | Outpatient (CLI) | payer OTHER | LOC: BHFA 13:30 | PROVIDERS: ATTEND Internal Medicine Cardiovascular Disease | DX: I25.10 Atherosclerotic heart disease of native coronary artery without angina pectoris (principal) | CPT/HCPCS: 78452; 93017; A9500; J2785 ==

== ENCOUNTER → 2018-06-22 | Outpatient (CLI) | payer OTHER | LOC: BHFA 14:45 | PROVIDERS: ATTEND Internal Medicine Cardiovascular Disease | DX: I25.10 Atherosclerotic heart disease of native coronary artery without angina pectoris (principal) ==